=== PATIENT | female | born 1995 | race African-American/Black ===

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

== ENCOUNTER 2017-05-17 19:30 | Emergency (ER) | payer MEDICAID ==
[2017-05-17 19:32] VITALS: BP 145/82; PULSE 82; RESP 16; TEMP 98.6; O2SAT 99
--- NOTE | 2017-05-17 21:03 | PD ---
HPI Chief Complaint: Allergic/Adverse Reaction Time Seen by Provider: 21:03 Travel History International Travel<30 days: No Contact w/Intl Traveler<30days: No Traveled to known affect area: No History of Present Illness HPI 21-year-old [place] female presents the emergency department status post exposure to tomatoes. Patient states she has an allergy to tomatoes and ate pizza last night with tomatoes on it. Patient states since that time she's had some increased congestion in her head, reported swelling of her tongue, and wheezing and chest congestion. Patient states she took Benadryl, and over-the- counter Mickie with improvement. She is here just to get checked out as she still feels congested and somewhat wheezy. She denies tongue swelling or difficulty swallowing at this time. Patient is allergic to penicillin and tomatoes. PFSH Past Medical History Immunizations Current: Yes ?: Not LMP: unknown Social History Alcohol Use: Yes Tobacco Use: No Substance Use: No Allergies-Medications (Allergen,Severity, Reaction): Coded Allergies: penicillin G (Unverified Allergy, Unknown, 03/28/17) Reported Meds & Prescriptions Reported Meds & Active Scripts Active Review of Systems Except as stated in HPI: all other systems reviewed are Neg General / Constitutional: No: Fever Eyes: No: Visual changes HENT: No: Headaches Cardiovascular: No: Chest Pain or Discomfort Respiratory: No: Shortness of Breath Gastrointestinal: No: Abdominal Pain Genitourinary: No: Dysuria Musculoskeletal: No: Pain Skin: No Rash Neurologic: No: Weakness Psychiatric: No: Depression Endocrine: No: Polydipsia Hematologic/Lymphatic: No: Easy Bruising Physical Exam Narrative GENERAL APPEARANCE: This 21 year old patient is a well-developed, well-nourished , in no acute distress. SKIN: Skin is warm and dry without erythema, swelling or exudate. There is good turgor. No tenting. HEENT: Throat is clear without erythema, swelling or exudate. Mucous membranes are moist. Uvula is midline. Airway is patent. The pupils are equal, round and reactive to light. Extra ocular motions are intact. Patient is clear sinus drainage and congestion. Turbinates are pink and swollen bilaterally. The ears show bilateral tympanic membranes without erythema, dullness or loss of landmarks. No perforation. NECK: Supple and non tender with full range of motion without discomfort. No meningeal signs. LUNGS: Equal and bilateral breath sounds without wheezes, rales or rhonchi. CHEST: The chest wall is without retractions or use of accessory muscles. HEART: Has a regular rate and rhythm without murmur, gallops, click or rub. ABDOMEN: Soft, non tender with positive active bowel sounds. No rebound tenderness. No masses, no hepatosplenomegaly. EXTREMITIES: Without cyanosis, clubbing or edema. Equal 2+ distal pulses and 2 second capillary refill noted. NEUROLOGIC: The patient is alert, aware, and appropriately interactive with parent and with examiner. The patient moves all extremities with normal muscle strength. Normal muscle tone is noted. Normal coordination is noted. Data Data Last Documented VS Vital Signs Date Time Temp Pulse Resp B/P (MAP) Pulse Ox O2 Delivery O2 Flow Rate FiO2 05/17/17 19:32 98.6 82 16 145/82 (103) 99 Room Air MDM Medical Decision Making Medical Screen Exam Complete: Yes Emergency Medical Condition: Yes Differential Diagnosis Food allergy. Allergic rhinitis. Bronchial congestion. Narrative Course Patient is felt to be medically stable at time of exam. Patient was treated empirically with Flonase nasal spray 2 sprays each nostril daily. Patient also given Mickie 180 mg daily. Patient also given albuterol metered-dose inhaler 2 puffs every 4-6 hours when necessary. Take Benadryl as needed. Patient should avoid exposures tomatoes in the future. Patient should follow-up if symptoms worsen as needed. Diagnosis Primary Impression: Food allergy Additional Impression: Allergic rhinitis Qualified Codes: J30.5 - Allergic rhinitis due to food Referrals: [facility] Patient Instructions: Allergies (ED), General Instructions, How to Use a Metered-Dose Inhaler (DC) Additional Instructions: Patient was treated empirically with Flonase nasal spray 2 sprays each nostril daily. Patient also given Mickie 180 mg daily. Patient also given albuterol metered-dose inhaler 2 puffs every 4-6 hours when necessary. Take Benadryl as needed. Patient should avoid exposures tomatoes in the future. Patient should follow-up if symptoms worsen as needed. Med/Other Pt SpecificInfo: Prescription(s) given Disposition: 01 DISCHARGE HOME Condition: Stable Ant Baptiste May 17, 2017 21:03
[2017-05-17] MEDS ORDERED: FLUT1SPR5 EACH NARE (21:18)
[2017-05-17] MEDS ORDERED: FEXO15TA PO (21:18)
[2017-05-17] MEDS ORDERED: VENTAER INH (21:18)
[2017-05-17] MEDS ORDERED: diphenhydrAMINE HCL 25 MG CAP PO ONE (21:30)
== END 2017-05-17 21:39 | disposition home or self-care (01) ==
LOC: NEPD 19:30
DX: J30.5 Allergic rhinitis due to food (principal); Z88.0 Allergy status to penicillin
CPT/HCPCS: 99282